=== PATIENT | male | born 1970 | race Caucasian/White ===

== ENCOUNTER 2021-08-23 08:31 | Outpatient (CLI) | payer BC, SELFPAY ==
[2021-08-23 08:54] LABS: Basophils Percent Auto 0.7 % (0.2-1.2); Eosinophils Absolute Auto 0.1 K/mm3 (0-0.3); Eosinophils Percent Auto 2.1 % (0-4.4); Hematocrit 41.5 % (42.0-52.0); Hemoglobin 14.4 g/dL (14.0-18.0); Immature Granulocyte Absolute 0.03 K/mm3 (0.00-0.031); Immature Granulocyte Percent A 0.5 % (0-0.5); Lymphocytes Absolute Auto 1.45 K/mm3 (0.9-3.2); Lymphocytes Percent Auto 23.6 % (18.3-44.2); Mean Corpuscular HGB Conc 34.7 g/dl (32-36); Mean Corpuscular Hemoglobin 30.1 pg (26-34); Mean Corpuscular Volume 86.6 fl (80-100); Mean Platelet Volume 9.8 fl (7.4-10.4); Monocytes Absolute Auto 0.6 K/mm3 (0.1-0.6); Monocytes Percent Auto 9.1 % (2.6-8.5); Neutrophils Absolute Auto 3.9 K/mm3 (1.3-6.7); Platelet Count Result 231 k/mm3 (150-375); Red Blood Count 4.79 M/mm3 (4.6-6.20); White Blood Count 6.2 K/mm3 (4.5-10.0)
[2021-08-23 09:12] LABS: Alanine Aminotransferase 23 U/L (4-50); Albumin Level 4.6 g/dL (3.5-5.1); Alkaline Phosphatase 61 U/L (38-126); Anion Gap 10 mmol/L (8-16); Aspartate Amino Transferase 29 U/L (17-59); Bilirubin,Total 0.9 mg/dL (0.2-1.3); Blood Urea Nitrogen 12 mg/dL (9-20); Calcium 9.3 mg/dL (8.4-10.2); Carbon Dioxide 24 mmol/L (22-30); Chloride 105 mmol/L (98-107); Cholesterol 227 mg/dL (0-200); Estimated Glomerular Filt Rate > 60; Glucose 96 mg/dL (65-110); HDL Direct 32 mg/dL; Potassium 4.1 mmol/L (3.4-5.0); Sodium 139 mmol/L (137-145); Triglycerides 187 mg/dL (<150)
[2021-08-23 09:15] LABS: Add Urine Microscopic? YES; Appearance Urine Clear (Clear); Bilirubin Urine Negative (Negative); Blood Urine Negative (Negative); Color Urine Yellow (Yellow); Glucose Urine UA Negative (Negative); Ketones Urine Negative (Negative); Leukocyte Esterase Ur Negative LEU/UL (NEGATIVE); Mucus Urine Heavy /lpf; Nitrate Urine Negative (Negative); Protein Urine 1+ mg/dL (Negative); RBC Urine 0-2 /hpf (0-2); Specific Grav Ur 1.023 (1.001-1.035); Squamous Epithelial Cell Urine Rare /hpf (Few); Urobilinogen Urine Negative mg/dL (<2.0); WBC Urine 0-3 /hpf (0-3)
[2021-08-23 09:22] LABS: LDL Cholesterol Direct 156 mg/dL
[2021-08-23 09:42] LABS: Prostate Specific Antigen 0.7 ng/mL (< OR = 4.0)
[2021-08-23 10:42] LABS: Folic Acid > 20.0 ng/mL (2.76->20)
== END 2021-08-23 08:32 | disposition home or self-care (01) ==
PROVIDERS: PCP Nurse Practitioner Family; Visit Provider Nurse Practitioner Family
DX: Z00.00 Encounter for general adult medical examination without abnormal findings (principal); Z12.5 Encounter for screening for malignant neoplasm of prostate
CPT/HCPCS: 36415; 80053; 80061; 81001; 82607; 82746; 84153; 84443; 85025; G0103

== ENCOUNTER 2022-10-28 00:03 | Observation (INO) | payer BC, SELFPAY ==
--- NOTE | ~2022-10-28 | XR_ITS ---
EXAMINATION: XR cholangiogram surg 1st inj DATE: 10/29/2022 17:30 PROCESS OWNER INDICATION: CHOLANGIOGRAM WITH IOC'S . TECHNIQUE: One cine clip consisting of 87 fluoroscopic images of the right upper quadrant were obtain ed during intraoperative cholangiography performed by the surgeon. I was not present in the operating room. Fluoroscopy exposure time was 14.7 seconds. Air Kerma 7.5631 mGy. DAP 0.1499 mGym2. COMPARISON: CT abdomen/pelvis and ultrasound abdomen 10/28/2022 FINDINGS: Laparoscopic instruments and surgical clips project over the right upper quadrant. The cystic duct is cannulated. Contrast fills a normal appearing intra and extrahepatic biliary system. No filling defe cts. No extravasation. IMPRESSION: Fluoroscopic documentation of intraoperative cholangiography. Please refer to the operative note for complete procedural details . Reviewed, dictated and finalized at location K. ESS OWNER IMPRESSION: Fluoroscopic documentation of intraoperative cholangiography. Please refer to nader clifton operative note for complete procedural details .
--- NOTE | ~2022-10-28 | CT_ITS ---
EXAMINATION: CT abdomen pelvis w con DATE: 10/28/2022 01:55 INDICATION: Right upper quadrant pain. Gallstones. TECHNIQUE: Computed tomography (CT) of the abdomen and pelvis was performed without intravenous contr ast. The dose-length product was 428.51 mGy-cm. Automated exposure control and iterative reconstructi on technique were employed. COMPARISON: None. FINDINGS: There is dependent atelectasis. Heart size normal. No significant vascular abnormality. No aortic aneurysm. No lymphadenopathy. There are gallstones. No biliary dilatation. The liver, spleen, pancreas, adrenal glands and kidneys are unremarkable. No free air or free fluid. No abnormal pelvic masses or fluid collections. Tiny fat -containing umbilical hernia. No evidence for inguinal hernia. No focal lytic or blastic lesions the osseous structures. Mild lumbar spondylosis. IMPRESSION: 1. Cholelithiasis. Reviewed, dictated and finalized at location A. Y FARMER IMPRESSION: 1. Cholelithiasis.
--- NOTE | ~2022-10-28 | US_ITS ---
US abdomen limited INDICATION: Right upper quadrant pain. Gallstones. PROCEDURE: Realtime right upper abdominal ultrasound. COMPARISON: No prior studies for comparison. FINDINGS: The pancreas is normal without focal mass or pancreatic ductal dilation. There is mild int rahepatic biliary dilatation. No focal hepatic mass. There is normal directional flow in the portal vein. There are gallstones with gallbladder wall thickening. Common bile duct measures mm. No sonographic Amado's sign although patient is on pain medications. IMPRESSION: 1: Cholelithiasis with gallbladder wall thickening and mild intrahepatic biliary dilatation. Findings suspicious for cholecystitis. Clinically correlate. Reviewed, dictated and finalized at location A. ING ENGINEER IMPRESSION: 1: Cholelithiasis with gallbladder wall thickening and mild intrahepatic biliar y dilatation. Findings suspicious for cholecystitis. Clinically correlate.
--- NOTE | 2022-10-28 00:05 | ECG_ITS ---
Measurements Intervals [place] Rate: 67 P: 63 [place]: 142 QRS: 50 QRSD: 113 T: 40 QT: 396 QTc: 419 Interpretive Statements SINUS RHYTHM INCOMPLETE RIGHT BUNDLE BRANCH BLOCK NO PREVIOUS ECG AVAILABLE FOR COMPARISON Electronically Signed On 10-28-2022 11:21:28 ARTIFICIAL INTELLIGENCE SPECIALIST by Ted Monteiro M.D.
[2022-10-28 00:09] VITALS: BP 148/83; PULSE 76; RESP 20; TEMP 36.2; O2SAT 100
[2022-10-28 00:26] LABS: Basophils Percent Auto 0.4 % (0.2-1.2); Eosinophils Absolute Auto 0.1 K/mm3 (0-0.3); Eosinophils Percent Auto 0.7 % (0-4.4); Hematocrit 41.5 % (42.0-52.0); Hemoglobin 14.4 g/dL (14.0-18.0); Immature Granulocyte Absolute 0.03 K/mm3 (0.00-0.031); Immature Granulocyte Percent A 0.3 % (0-0.5); Lymphocytes Absolute Auto 1.61 K/mm3 (0.9-3.2); Lymphocytes Percent Auto 16.7 % (18.3-44.2); Mean Corpuscular HGB Conc 34.7 g/dl (32-36); Mean Corpuscular Hemoglobin 30.3 pg (26-34); Mean Corpuscular Volume 87.2 fl (80-100); Mean Platelet Volume 9.7 fl (7.4-10.4); Monocytes Absolute Auto 0.6 K/mm3 (0.1-0.6); Monocytes Percent Auto 5.8 % (2.6-8.5); Neutrophils Absolute Auto 7.4 K/mm3 (1.3-6.7); Neutrophils Percent Auto 76.1 % (45.5-73.1); Platelet Count Result 237 k/mm3 (150-375); Red Blood Count 4.76 M/mm3 (4.6-6.20); White Blood Count 9.7 K/mm3 (4.5-10.0)
[2022-10-28 00:35] LABS: Mucus Urine Rare /lpf; RBC Urine 0-2 /hpf (0-2); WBC Urine 0-3 /hpf
[2022-10-28 00:39] LABS: Appearance Urine Clear (Clear); Bilirubin Urine Negative (Negative); Blood Urine Negative (Negative); Color Urine Yellow (Yellow); Glucose Urine UA Negative (Negative); Ketones Urine Negative (Negative); Leukocyte Esterase Ur Negative LEU/UL (Negative); Nitrate Urine Negative (Negative); Protein Urine Negative (Negative); Specific Grav Ur 1.025 (1.001-1.035); Urobilinogen Urine 0.2 mg/dL (<2.0); pH Urine 6.5 (5.0-9.0)
[2022-10-28 00:43] LABS: Alanine Aminotransferase 27 U/L (6-50); Albumin Level 4.7 g/dL (3.5-5.1); Alkaline Phosphatase 67 U/L (38-126); Anion Gap 10 mmol/L (8-16); Aspartate Amino Transferase 29 U/L (17-59); Bilirubin,Total 0.4 mg/dL (0.2-1.3); Blood Urea Nitrogen 15 mg/dL (9-20); Carbon Dioxide 25 mmol/L (22-30); Chloride 104 mmol/L (98-107); Estimated CRCL calculation 100 ml/min; Estimated Glomerular Filt Rate > 60; Glucose 122 mg/dL (65-110); Lipase 165 U/L (23-300); Potassium 3.6 mmol/L (3.4-5.0); Sodium 139 mmol/L (137-145)
[2022-10-28 00:44] LABS: Add Urine Microscopic? NO
[2022-10-28] MEDS: PANTOPRAZOLE SODIUM IV 40 MG VIAL IV PUSH (01:24)
[2022-10-28] MEDS: MORPHINE SULFATE (*CRX) 4 MG/ML INJ IV PUSH ×3 (01:24→08:50)
[2022-10-28] MEDS: ONDANSETRON INJ 4 MG/2 ML VIAL IV PUSH (01:24)
[2022-10-28] MEDS: SODIUM CHLORIDE 0.9% IV 1,000 ML 999 ML IV CONT (01:25)
--- NOTE | 2022-10-28 01:58 | ED.GENADULT ---
HPI - General Adult General Chief complaint: Abdominal Pain Stated complaint: Epigastric pain, n/v Time Seen by Provider: 10/28/22 01:03 History of Present Illness HPI narrative: Patient is a 52-year-old gentleman who presents the emergency department with a chief complaint of epigastric pain. Patient reports that this evening he ate some pizza and then had about a half a beer and then reports that he started having severe epigastric pain that radiates to his back patient also reports that he had pain radiating to his right shoulder and his chest. Patient reports that the symptoms or not improved by anything reports he feels nauseated reports he has vomited a couple times and try to have a bowel movement. Patient denies fever denies prior abdominal surgeries. Related Data Home Medications Medication Instructions Recorded Confirmed carboxymethyl 0.5 %-glycerin 1 1 drp EACH EYE QHS 08/10/21 08/10/21 %-polysorb 80 0.5 %-PF eye dropperette (Refresh Optive Lupillo-3 (PF)) carboxymethylcellulose sodium 0.5 1 drp EACH EYE BID 08/10/21 08/10/21 % eye drops (Refresh Tears) cetirizine 10 mg capsule (Zyrtec) 10 mg PO DAILY PRN 08/10/21 08/10/21 fluticasone propionate 50 1 spray intranasal DAILY 08/10/21 08/10/21 mcg/actuation nasal spray,suspension (Flonase Allergy Relief) ibuprofen 200 mg tablet 200 mg PO Q6H PRN 08/10/21 08/10/21 pseudoephedrine-guaifenesin ER 60 1 tablet PO Q12H PRN 08/10/21 08/10/21 mg-600 mg tablet,extend release 12hr (Mucinex D) Allergies Allergy/AdvReac Type Severity Reaction Status Date / Time No Known Allergies Allergy Verified 10/28/22 00:13 Review of Systems Review of Systems: A 10 system review of systems was completed on the patient and is negative except for what is stated in the HPI. Nursing and ancillary documentation was reviewed. [facility] Past Medical History Medical History Chronic allergic rhinitis Encounter to establish care Frequent episodes of pneumonia Hearing loss Hx of cardiac murmur Screening for colon cancer Screening for prostate cancer Seasonal allergies Family History Family History Father Malignant neoplasm of prostate Mother Breast cancer Cerebrovascular accident Thyroid disease High cholesterol Sibling Thyroid disease High cholesterol Social History Social History Smoking status: Never smoker Alcohol intake: never Substance use: never Exam Narrative: GENERAL: Well-appearing, well-nourished, and in no acute distress. HEAD: Normocephalic, atraumatic. EYES: PERRLA and EOMI. ENT: Nares clear, no rhinorrhea or epistaxis. Mucous membranes moist. NECK: Supple. CHEST: Clear to auscultation. No respiratory distress. HEART: Regular rate and rhythm. No murmur heard. Normal peripheral pulses. ABDOMEN: Soft, tender to palpation in the epigastric and right upper quadrant, nondistended, normal active bowel sounds. EXTREMITIES: Normal range of motion. No edema. SKIN: Warm, dry, no rash. NEURO: No focal deficits. Alert and oriented x3. PSYCH: Normal mood and affect. Course Course Emergency Course: CT scan showed evidence of a large number of gallstones but no thickening of the gallbladder wall or fluid around the gallbladder. The patient's pain is improved somewhat but he still having some pain. Patient will be admitted for observation bowel rest and ultrasound in the morning Vital Signs Vital signs: Vital Signs Temperature 36.2 C L 10/28/22 00:09 Pulse Rate 76 10/28/22 00:09 Respiratory Rate 20 10/28/22 00:09 Blood Pressure 148/83 H 10/28/22 00:09 Pulse Oximetry 100 10/28/22 00:09 Oxygen Delivery Room Air 10/28/22 00:09 Temperature 36.2 C L 10/28/22 00:09 Pulse Rate 66 10/28/22 03:56 Respiratory Rate 18 10/28
[2022-10-28 03:56] VITALS: BP 123/91; PULSE 66; RESP 18; O2SAT 97
[2022-10-28] MEDS: SODIUM CHLORIDE 0.9% IV 1,000 ML 125 ML IV CONT ×3 (04:54→21:05)
[2022-10-28 05:26] LABS: Influenza A QL RT-PCR Negative (Negative); Influenza B QL RT-PCR Negative (Negative); SARS-CoV-2 RNA PCR Negative
[2022-10-28 05:38] VITALS: BP 124/62; PULSE 60; RESP 18; O2SAT 96
[2022-10-28 06:03] VITALS: BMI 27.6
[2022-10-28 06:05] VITALS: BP 118/63; PULSE 68; RESP 18; TEMP 36.2; O2SAT 98
--- NOTE | 2022-10-28 11:48 | PM.IMHP ---
H&P: HPI History of Present Illness Date/Time: 10/28/22 11:48 Chief Complaint: abdominal pain Narrative: Patient is a 52-year-old gentleman who presents the emergency department with a chief complaint of epigastric pain and right upper quadrant pain.? Patient reports that this evening he ate some pizza and then had about a half a beer and then reports that he started having severeRight lower part of the chest pain that radiated back to epigastric after an hour or so. The pain has been constant. He took some antacid which made him nauseated and he to self throughout. His the pain continued he came to the ER around midnight and he was given morphine after which he started to feel little better. He had another episode again later for which he was given another morphine. His been feeling well since then and except for the mild discomfort in that area reports no obvious pain. He denies any nausea vomiting he felt a little chilly yesterday but no fever. He has no other prior medical history. He did have similar episode couple years back which resolved without any medical attention. Review of Systems Review of Systems: - CONSTITUTIONAL: Denies weight loss, fever and chills. - HEENT: Denies changes in vision and hearing - RESPIRATORY: Denies SOB and cough. - CV: Denies palpitations and CP. - GI: Reports abdominal pain, nausea, vomiting and denies diarrhea. - : Denies dysuria and urinary frequency. - MSK: Denies myalgia and joint pain. - SKIN: Denies rash and pruritus. - NEUROLOGICAL: Denies headache and syncope. - PSYCHIATRIC: Denies recent changes in mood. Denies anxiety and depression. [facility] Past Medical History Medical History Chronic allergic rhinitis Encounter to establish care Frequent episodes of pneumonia Hearing loss Hx of cardiac murmur Screening for colon cancer Screening for prostate cancer Seasonal allergies Family History Family History Father Malignant neoplasm of prostate Mother Breast cancer Cerebrovascular accident Thyroid disease High cholesterol Sibling Thyroid disease High cholesterol Social History Social History Smoking status: Never smoker Alcohol intake: current Drinks per week: 1 Substance use: never Substance use type: does not use Lack of Transportation: No Lack of Food: Never True Current Housing: I Have Housing Concerned About Future Housing: No Difficulty Paying Gas/Electric Bills: No Difficulty Paying for Meds: No Currently Unemployed: No Education: Bachelor's Degree Difficulty w/ Childcare or Family Care: No Spiritual care concerns: No Meds Home Medications and Allergies Home Medications Medication Instructions Recorded Confirmed Type carboxymethyl 0.5 %-glycerin 1 1 drp EACH EYE QHS 08/10/21 10/28/22 History %-polysorb 80 0.5 %-PF eye dropperette (Refresh Optive Lupillo-3 (PF)) carboxymethylcellulose sodium 0.5 1 drp EACH EYE BID PRN Dry Eyes 08/10/21 10/28/22 History % eye drops (Refresh Tears) cetirizine 10 mg capsule (Zyrtec) 10 mg PO DAILY PRN Allergy Symptoms 08/10/21 10/28/22 History fluticasone propionate 50 1 spray intranasal DAILY 08/10/21 10/28/22 History mcg/actuation nasal spray,suspension (Flonase Allergy Relief) ibuprofen 200 mg tablet 200 mg PO Q6H PRN Pain 08/10/21 10/28/22 History pseudoephedrine-guaifenesin ER 60 1 tablet PO Q12H PRN Nasal 08/10/21 10/28/22 History mg-600 mg tablet,extend release Congestion 12hr (Mucinex D) Allergies Allergy/AdvReac Type Severity Reaction Status Date / Time No Known Allergies Allergy Verified 10/28/22 00:13 Vital Signs Vital Signs - 24 hr 10/28/22 00:09 10/28/22 03:56 10/28/22 05:38 Temperature 97.2 F L Pulse Rate 76 66 60 Respira
[2022-10-28 14:10] VITALS: BP 107/56; PULSE 69; RESP 12; TEMP 36.3; O2SAT 98
--- NOTE | 2022-10-28 16:52 | PM.CNGS ---
Assessment and Plan Assessment and plan (1) Acute calculous cholecystitis: Code(s): K80.00 - Calculus of gallbladder with acute cholecystitis without obstruction Status: Acute Assessment and Plan: I have reviewed the CT and discussed the findings with the patient. He has evidence of cholelithiasis and gallbladder wall thickening consistent with acute cholecystitis. His liver enzymes are normal, but ultrasound did show slightly dilated intrahepatic bile ducts. Since patient's symptoms are currently improved, I will place him on a low-fat diet this evening to see how he does. We will plan to repeat CBC, CMP, and lipase tomorrow. Patient does have many gallstones throughout his gallbladder and is at risk for recurrent acute episodes in the future. I have discussed options of observation versus proceeding with surgery. Observation will certainly have risks of recurrent attacks and there is no easy way to predict when that will be. Dietary modifications can help prevent attacks, but it is no guarantee. Have recommended proceeding with laparoscopic cholecystectomy with intraoperative cholangiogram, possible open. I discussed the procedure, risks, benefits, and alternatives. Questions were answered. Will plan for surgery tomorrow unless there are any other new concerning findings with his labs or symptoms. (2) Dilation of biliary tract: Code(s): K83.8 - Other specified diseases of biliary tract Status: Acute History of Present Illness Consult details Consult date: 10/28/22 Reason for consult: gallstones Requesting physician: Anthony Barron MD Narrative: This is a 52-year-old man who I am asked to see for cholelithiasis with cholecystitis. He presented to the emergency department early this morning with abdominal pain that started last night. He had eaten pizza and drinking half of beer, and pain began shortly after this. His pain initially began in the right chest and right upper quadrant region and then eventually migrated to the epigastric region. He has been having constant pain since it started, but then his pain started improving around noon today. He was also experiencing nausea. He denied any fevers or chills. He did have an episode similar to this a couple years ago but it resolved after couple hours. He never sought treatment with the previous episode. A CT of his abdomen and pelvis was performed in the emergency department and this showed evidence of cholelithiasis. He was admitted for further workup and an ultrasound was performed this morning. This showed evidence of cholelithiasis, mild gallbladder wall thickening, and mild intrahepatic biliary duct dilatation. Review of Systems Review of Systems: All systems reviewed & are unremarkable except as noted in HPI and below Constitutional: Constitutional: Denies chills and Denies fever(s) Eyes: Eyes: Denies change in vision ENT: Denies hearing loss, Denies neck pain and Denies sore throat Cardiovascular: Cardiovascular: Denies chest pain and Denies dyspnea Respiratory: Respiratory: Denies cough, Denies dyspnea and Denies wheezing Genitourinary: Genitourinary: Denies hematuria and Denies dysuria Musculoskeletal: Musculoskeletal: Denies arthralgias, Denies joint swelling and Denies neck pain Allergic/Immunologic: Allergic/Immunologic: Denies wheezing [facility] Past Medical History Medical History (Updated 10/28/22 @ 16:58 by Kamlesh Davis DO) Chronic allergic rhinitis Encounter to establish care Frequent episodes of pneumonia Hearing loss Hx of cardiac murmur Screening for colon cancer Screening for prostate cancer Seasonal allergies Surgical History Surgical History (Updated 10/28/22 @ 16:56 by Kamlesh Davis DO) No history of previous surgery Family History Family History Father Malignant neoplasm of prostate Mother Breast cancer Cerebrovascular acc
[2022-10-28] MEDS: ACETAMINOPHEN/ASPIRIN/CAFFEINE 250-250-65 MG TABLET 1 TABLET PO (17:15)
[2022-10-28 22:00] VITALS: BP 113/60; PULSE 62; RESP 16; TEMP 36.3; O2SAT 97
--- NOTE | 2022-10-28 22:42 | PC.NURSE ---
Pt is resting in bed. Pt states that he is not currently experiencing any pain. Pt does not express any needs at this time. Pt participated and contributed in plan of care. Will continue to monitor pt.
[2022-10-29] VITALS (13 sets, daily range): BP systolic 99–131; BP diastolic 48–85; PULSE 70–96; RESP 14–24; TEMP 36.2–37.7; O2SAT 93–100
[2022-10-29 06:53] LABS: Hematocrit 38.7 % (42.0-52.0); Hemoglobin 13.2 g/dL (14.0-18.0); Mean Corpuscular HGB Conc 34.1 g/dl (32-36); Mean Corpuscular Hemoglobin 30.8 pg (26-34); Mean Corpuscular Volume 90.2 fl (80-100); Mean Platelet Volume 9.9 fl (7.4-10.4); Platelet Count Result 192 k/mm3 (150-375); Red Blood Count 4.29 M/mm3 (4.6-6.20); Red Cell Distribution Width 12.4 % (11.5-14.5); White Blood Count 9.9 K/mm3 (4.5-10.0)
[2022-10-29 07:05] LABS: Alanine Aminotransferase 24 U/L (6-50); Albumin Level 3.8 g/dL (3.5-5.1); Alkaline Phosphatase 52 U/L (38-126); Anion Gap 7 mmol/L (8-16); Aspartate Amino Transferase 32 U/L (17-59); Bilirubin,Total 1.4 mg/dL (0.2-1.3); Blood Urea Nitrogen 9 mg/dL (9-20); Calcium 7.9 mg/dL (8.4-10.2); Carbon Dioxide 27 mmol/L (22-30); Chloride 103 mmol/L (98-107); Estimated CRCL calculation 100 ml/min; Estimated Glomerular Filt Rate > 60; Glucose 97 mg/dL (65-110); Lipase 57 U/L (23-300); Potassium 3.9 mmol/L (3.4-5.0); Sodium 137 mmol/L (137-145)
--- NOTE | 2022-10-29 12:00 | PM.IMPN ---
Progress Note: A&P Assessment and Plan (1) Acute cholecystitis: Code(s): K81.0 - Acute cholecystitis Status: Deleted (2) Dilation of biliary tract: Code(s): K83.8 - Other specified diseases of biliary tract Status: Acute Plan # acute calculus cholecysittis: iv zosyn. npo gens ugery consult. ivf. iv morphine, iv zofran prn. mild biliary dilation noted. lfts are normal. discussed with General surgery. He is going for laparoscopic cholecystectomy with plans for intraoperative cholangiogram. If evidence of stones and bile duct GI consult for ERCP. Labs were unremarkable so unlikely # DVT proph: SCDs # code status: full code Subjective Date/time seen: 10/29/22 12:00 Interval history: no further pain reported no nausea vomiting. Plan for surgery today all questions answered Review of Systems Review of Systems: All systems reviewed & are unremarkable except as noted in HPI and below Exam Narrative: GENERAL: Well-appearing, well-nourished, and in no acute distress. HEAD: Normocephalic, atraumatic. EYES: PERRLA and EOMI. ENT: Nares clear, no rhinorrhea or epistaxis.? Mucous membranes moist. NECK: Supple. CHEST: Clear to auscultation.? No respiratory distress. HEART: Regular rate and rhythm.? No murmur heard.? Normal peripheral pulses. ABDOMEN: Soft, nontender, nondistended, normal active bowel sounds. EXTREMITIES: Normal range of motion.? No edema. SKIN: Warm, dry, no rash. NEURO: No focal deficits.? Alert and oriented x3. PSYCH: Normal mood and affect. Objective Data Vital Signs Vital Signs: Vital Signs - 24 hr 10/28/22 14:10 10/28/22 21:05 10/28/22 22:00 Temperature 97.3 F L 97.4 F L Pulse Rate 69 62 Respiratory Rate 12 16 Blood Pressure 107/56 L 113/60 Pulse Oximetry 98 97 Oxygen Delivery Room Air 10/29/22 06:00 Temperature 98.7 F Pulse Rate 81 Respiratory Rate 16 Blood Pressure 124/56 L Pulse Oximetry 97 Oxygen Delivery Intake/Output Intake/Output: Intake & Output 10/26/22 10/27/22 10/28/22 10/29/22 23:59 23:59 23:59 23:59 Intake Total 3522 400 Balance 3522 400 Meds/Results Medications: Active Medications Generic Name Dose Route Start Last Admin Trade Name Freq PRN Reason Stop Dose Admin Acetaminophen/Aspirin/Caffeine 1 tablet 10/28/22 13:07 10/28/22 17:15 Acetaminophen/Aspirin/Caffeine 250-250-65 Mg Tablet PO 1 tablet Q6H PRN Administration Pain Rated 1-3 Sodium Chloride 1,000 mls @ 50 mls/hr 10/28/22 04:35 10/28/22 21:05 Normal Saline Iv IV CONT 125 mls/hr .Q20H KORINA Administration Piperacillin/Tazobactam/Dextrose 3.375 gm in 50 mls @ 100 mls/hr 10/28/22 13:00 10/29/22 08:12 Zosyn 3.375 Gm/D5w 50ml Pm IVPB Infused Q6H KORINA Infusion Morphine Sulfate 4 mg 10/28/22 04:35 10/28/22 08:50 Morphine Sulfate (*Crx) 4 Mg/Ml Inj IV PUSH 4 mg Q2H PRN Administration Pain Rated 7-10 Ondansetron HCl 4 mg 10/28/22 04:35 Ondansetron Inj 4 Mg/2 Ml Vial IV PUSH Q4H PRN Nausea Radiology Results: ITS Impressions Abdomen/Pelvis CT 10/28/22 09:24 IMPRESSION: 1. Cholelithiasis. Abdomen Ultrasound 10/28/22 09:28 IMPRESSION: 1: Cholelithiasis with gallbladder wall thickening and mild intrahepatic biliary dilatation. Findings suspicious for cholecystitis. Clinically correlate. Labs Labs: Laboratory Results - last 24 hr 10/29/22 10/29/22 06:25 06:25 WBC 9.9 RBC 4.29 L Hgb 13.2 L Hct 38.7 L MCV 90.2 MCH 30.8 MCHC 34.1 RDW 12.4 Plt Count 192 MPV 9.9 Sodium 137 Potassium 3.9 Chloride 103 Carbon Dioxide 27 Anion Gap 7 L BUN 9 D Creatinine 0.80 Estim Creat Clear Calc 100 Estimated GFR > 60 Glucose 97 Calcium 7.9 L Total Bilirubin 1.4 H AST 32 ALT 24 Alkaline Phosphatase 52 Total Protein 6.0 L Albumin 3.8 Lipase 57
[2022-10-29] MEDS: LACTATED RINGERS 1,000 ML 30 ML IV CONT ×2 (15:43→18:25)
--- NOTE | 2022-10-29 17:06 | WPDHPUPDATE1 ---
History and Physical Update Update Date/Time: 10/29/22 17:06 History and Physical has been reviewed, including an updated exam of the patient. There are NO changes in the patient's condition. Risks, benefits, and alternatives have been discussed and questions answered. Patient agrees to proceed with procedure.
--- NOTE | 2022-10-29 17:10 | WPDANESEPPF ---
Anes - Initial Pre Proc Eval Procedure: Operation Date: 10/29/22 15:30 Proposed Procedures p Laparoscopic Cholecystectomy With Intraoperative Cholangiograms - Kamlesh Davis DO Date/Time: 10/29/22 17:10 Surgeon: Anthony Barron MD Pre Op Diagnosis: epigatric abdominal pain Patient Data Age: 52 Gender: M Height: 1.8 m Weight: 89.9 kg Last Vital Signs Temp 37.7 C H 10/29/22 15:39 Pulse 80 10/29/22 15:39 Resp 14 10/29/22 15:39 BP 121/74 10/29/22 15:39 Pulse Ox 96 10/29/22 15:39 O2 Del Method Room Air 10/29/22 15:39 Allergies Allergy/AdvReac Type Severity Reaction Status Date / Time No Known Allergies Allergy Verified 10/28/22 00:13 Home Medications Medication Instructions Recorded Confirmed Type carboxymethyl 0.5 %-glycerin 1 1 drp EACH EYE QHS 08/10/21 10/28/22 History %-polysorb 80 0.5 %-PF eye dropperette (Refresh Optive Lupillo-3 (PF)) carboxymethylcellulose sodium 0.5 1 drp EACH EYE BID PRN Dry Eyes 08/10/21 10/28/22 History % eye drops (Refresh Tears) cetirizine 10 mg capsule (Zyrtec) 10 mg PO DAILY PRN Allergy Symptoms 08/10/21 10/28/22 History fluticasone propionate 50 1 spray intranasal DAILY 08/10/21 10/28/22 History mcg/actuation nasal spray,suspension (Flonase Allergy Relief) ibuprofen 200 mg tablet 200 mg PO Q6H PRN Pain 08/10/21 10/28/22 History pseudoephedrine-guaifenesin ER 60 1 tablet PO Q12H PRN Nasal 08/10/21 10/28/22 History mg-600 mg tablet,extend release Congestion 12hr (Mucinex D) Laboratory Tests 10/29/22 10/29/22 06:25 06:25 WBC 9.9 K/mm3 K/mm3 (4.5-10.0) RBC 4.29 M/mm3 L M/mm3 (4.6-6.20) Hgb 13.2 g/dL L g/dL (14.0-18.0) Hct 38.7 % L % (42.0-52.0) MCV 90.2 fl fl (80-100) MCH 30.8 pg pg (26-34) MCHC 34.1 g/dl g/dl (32-36) RDW 12.4 % % (11.5-14.5) Plt Count 192 k/mm3 k/mm3 (150-375) MPV 9.9 fl fl (7.4-10.4) Sodium 137 mmol/L mmol/L (137-145) Potassium 3.9 mmol/L mmol/L (3.4-5.0) Chloride 103 mmol/L mmol/L (98-107) Carbon Dioxide 27 mmol/L mmol/L (22-30) Anion Gap 7 mmol/L L mmol/L (8-16) BUN 9 mg/dL D mg/dL (9-20) Creatinine 0.80 mg/dL mg/dL (0.7-1.3) Estim Creat Clear Calc 100 ml/min ml/min Estimated GFR > 60 (59 - ) Glucose 97 mg/dL mg/dL (65-110) Calcium 7.9 mg/dL L mg/dL (8.4-10.2) Total Bilirubin 1.4 mg/dL H mg/dL (0.2-1.3) AST 32 U/L U/L (17-59) ALT 24 U/L U/L (6-50) Alkaline Phosphatase 52 U/L U/L (38-126) Total Protein 6.0 g/dL L g/dL (6.3-8.2) Albumin 3.8 g/dL g/dL (3.5-5.1) Lipase 57 U/L U/L (23-300) Patient hx anesthesia problems: none Family hx anesthesia problems: none Results Review: All pre-operative results and documents have been reviewed as part of the pre-operative evaluation. [facility] Past Medical History Medical History Chronic allergic rhinitis Encounter to establish care Frequent episodes of pneumonia Hearing loss Hx of cardiac murmur Screening for colon cancer Screening for prostate cancer Seasonal allergies Surgical History Surgical History No history of previous surgery Family History Family History Father Malignant neoplasm of prostate Mother Breast cancer Cerebrovascular accident Thyroid disease High cholesterol Sibling Thyroid disease High cholesterol Social History Social History Smoking status: Never smoker Alcohol intake: current Drinks per week: 1 Substance use: never Substance use type: does not use Lack of Transportation: No Lack of Food: Never True Current Housing: I
[2022-10-29] MEDS: LIDO 1%/EPINEPHRINE/PF 1:200,000 30 ML VIAL INFILTRATE (17:41)
--- NOTE | 2022-10-29 18:23 | W.PM.PROC2 ---
Procedure Note - Detailed Date of Procedure 10/29/22 Pre-op Diagnosis Acute calculous cholecystitis, elevated bilirubin Post-op Diagnosis Same Procedure Performed Laparoscopic Cholecystectomy with intraoperative cholangiogram Surgeon Kamlesh Davis, Anesthesia General and Local (0.5% bupivacaine) Indications This is a 52-year-old man who presented to the emergency department with upper abdominal pain. He denied any fevers or chills. He did have some nausea. He had an episode like this a couple years ago but not as severe. In the emergency department he was noted to have a normal white blood count with a left shift. His liver enzymes were normal initially but imaging showed a slightly dilated intrahepatic biliary ducts. His CT also showed acute calculous cholecystitis. He was admitted for further treatment. Discussions were made with the patient about treatment options and decision was made to proceed with laparoscopic cholecystectomy with intraoperative cholangiogram, possible open. Findings Laparoscopic cholecystectomy with cholangiogram was performed. The gallbladder had evidence of acute cholecystitis with gallbladder wall thickening and edema. There were a few pericholecystic adhesions as well. The gallbladder had multiple gallstones within the gallbladder lumen. The cystic duct appeared normal in size. Cholangiogram was obtained with Omnipaque contrast and there were no filling defects or be biliary duct obstructions. The gallbladder was removed and sent to the lab for pathology. Description of Procedure Procedure as well as risks, benefits, and alternatives were discussed with patient. Written consent was obtained and placed in chart prior to procedure. The patient was brought back to surgical suite. Patient was placed in supine position on operating table. Time-out was done to confirm patient and procedure. Patient was then intubated by the anesthesia department. Abdomen was prepped and draped in sterile fashion using chlorhexidine prep. 0.5% bupivacaine with epinephrine was infiltrated at each site of incision. A 5 millimeter incision was made near the umbilicus, and a 5 millimeter Optiview trocar was advanced through the abdominal layers under direct visualization. Once inside the abdominal cavity, carbon dioxide was insufflated to create a pneumoperitoneum. The camera was inserted and the abdomen was inspected. No immediate abnormalities were identified. The patient was placed in reverse Trendelenburg position and rotated slightly to the left. An 11 millimeter incision was made in the subxiphoid region, and an 11 millimeter trocar was inserted under direct visualization. Two 5 millimeter incisions were made in the right upper quadrant, and two 5 millimeter trocars were inserted under direct visualization. The gallbladder was identified and grasped at the fundus and retracted superiorly. It was then grasped at the infundibulum retracted laterally. Careful dissection around the neck of the gallbladder was performed using blunt dissection with a [place] grasper and hook electrocautery. The cystic duct was identified, and a window was created behind it. The cystic artery was also identified and a window was created behind it. The critical view of safety was identified, visualizing the cystic duct running directly into the neck of the gallbladder, and the cystic artery running directly into the wall of the gallbladder. A 5 millimeter clip industrial maintenance repairer was then used to place 2 clips proximally and 1 clip distally on the cystic artery. It was then transected using endoscopic scissors. The Barnhart clamp was then placed across the distal neck of the gallbladder and the Barnhart cholangiocatheter was advanced into the distal neck of the gallbladder. The catheter flushed with saline with ease. The patient was flattened out of bed and intraoperative cholangiogram was obtained using fluoroscopy and Omnipaque contrast. The images were sent to th
[2022-10-30 01:28] VITALS: BP 104/60; PULSE 74; RESP 16; TEMP 36.6; O2SAT 94
[2022-10-30] MEDS: HYDROcodone/acetaminophen (*CRX) 5-325 MG TABLET 1 TAB PO (03:01)
--- NOTE | 2022-10-30 04:10 | PC.NURSE ---
Pt came back from surgery with no complaints of pain. Pt resting comfortably. Pt has only required pain medication one time. Pt has participated and contributed in plan of care. Pt has no other needs at this time. Will continue to monitor pt.
[2022-10-30 05:28] VITALS: BP 92/38; PULSE 78; RESP 16; TEMP 36.4; O2SAT 96
[2022-10-30 07:00] LABS: Hematocrit 35.4 % (42.0-52.0); Hemoglobin 12.1 g/dL (14.0-18.0); Mean Corpuscular HGB Conc 34.2 g/dl (32-36); Mean Corpuscular Hemoglobin 29.9 pg (26-34); Mean Corpuscular Volume 87.4 fl (80-100); Mean Platelet Volume 9.8 fl (7.4-10.4); Platelet Count Result 225 k/mm3 (150-375); Red Blood Count 4.05 M/mm3 (4.6-6.20); Red Cell Distribution Width 12.1 % (11.5-14.5); White Blood Count 10.2 K/mm3 (4.5-10.0)
[2022-10-30 07:08] LABS: Alanine Aminotransferase 29 U/L (6-50); Albumin Level 3.8 g/dL (3.5-5.1); Alkaline Phosphatase 54 U/L (38-126); Anion Gap 5 mmol/L (8-16); Aspartate Amino Transferase 30 U/L (17-59); Bilirubin,Total 1.1 mg/dL (0.2-1.3); Blood Urea Nitrogen 10 mg/dL (9-20); Calcium 8.2 mg/dL (8.4-10.2); Carbon Dioxide 28 mmol/L (22-30); Chloride 105 mmol/L (98-107); Estimated CRCL calculation 90 ml/min; Estimated Glomerular Filt Rate > 60; Glucose 104 mg/dL (65-110); Potassium 3.7 mmol/L (3.4-5.0); Sodium 138 mmol/L (137-145)
[2022-10-30 08:00] VITALS: BP 120/82; PULSE 83; RESP 16; TEMP 36.4; O2SAT 97
[2022-10-30] MEDS: ACETAMINOPHEN/ASPIRIN/CAFFEINE 250-250-65 MG TABLET 1 TABLET PO (08:49)
--- NOTE | 2022-10-30 11:00 | PM.DS ---
DS: Admitting Diagnosis Discharge Date 10/30/22 1100 Admitting Diagnosis Acute cholecystectomy DS: Discharge Diagnosis Discharge Diagnosis (1) Acute cholecystitis: Code(s): K81.0 - Acute cholecystitis Status: Deleted Assessment and Plan: Post op surgical intervention 10/29/22 (2) Dilation of biliary tract: Code(s): K83.8 - Other specified diseases of biliary tract Status: Acute Plan # acute calculus cholecysittis: iv zosyn. npo gens ugery consult. ivf. iv morphine, iv zofran prn. mild biliary dilation noted. lfts are normal. ?need GI evaluation prior vs perform MRI /MRCP to rule out choledocholithiasis. will await gen surg evaluation. # DVT proph: SCDs # code status: full code DS: Summary Hospital Course Hospital Course: Patient is a 52-year-old male with a past medical history of seasonal allergies who presented to the ED with complaints of right upper quadrant pain. Patient did report that he had some pizza prior to room and pain radiates to the epigastric region. CT of the abdomen showed cholelithiasis. Ultrasound of the right upper quadrant did show gallbladder thickening and biliary dilatation. Stone obstruction was ruled out. Patient was taken to OR by General surgery who was consulted. Patient underwent cholecystectomy. Patient is up walking around today. Patient denies any chest pain, shortness a breath, nausea, vomiting, diarrhea, constipation, weakness or fatigue. Incision sites are intact with glue and appear to be well. Patient is ready for discharge. Labs and vital signs are stable. Status at Discharge Functional status at discharge: independent ambulation Overall status at discharge: patient is progressing back to baseline Time Spent with Patient Time attestation: Total time spent providing and/or coordinating discharge services: 36 minutes Time spent: Greater than 30 minutes Specific discharge activities: Diagnostic testing, chart review, developing a treatment plan, education, care coordination documentation, physical exam, result review Exam Narrative: GENERAL: Well-appearing, well-nourished, and in no acute distress. HEAD: Normocephalic, atraumatic. EYES: PERRLA and EOMI. ENT: Nares clear, no rhinorrhea or epistaxis.? Mucous membranes moist. NECK: Supple. CHEST: Clear to auscultation.? No respiratory distress. HEART: Regular rate and rhythm.? No murmur heard.? Normal peripheral pulses. ABDOMEN: Soft, nontender, nondistended, normal active bowel sounds, 4 surgical incision, glue dry and intact without swelling drainage or redness EXTREMITIES: Normal range of motion.? No edema. SKIN: Warm, dry, no rash. NEURO: No focal deficits.? Alert and oriented x3. PSYCH: Normal mood and affect. DS: Data Data Completed and Pending Pending studies at discharge: Pending at discharge 10/29/22 17:53 Surgical [PTH] Routine Labs on day of discharge: Labs from last 24 hours 10/30/22 10/30/22 06:17 06:17 WBC 10.2 H RBC 4.05 L Hgb 12.1 L Hct 35.4 L MCV 87.4 MCH 29.9 MCHC 34.2 RDW 12.1 Plt Count 225 MPV 9.8 Sodium 138 Potassium 3.7 Chloride 105 Carbon Dioxide 28 Anion Gap 5 L BUN 10 Creatinine 0.90 Estim Creat Clear Calc 90 Estimated GFR > 60 Glucose 104 Calcium 8.2 L Total Bilirubin 1.1 AST 30 ALT 29 Alkaline Phosphatase 54 Total Protein 7.0 Albumin 3.8 Discharge Plan Discharge Attending physician on discharge: Missy Frausto Consulting providers: Kamlesh Davis ; Tony Osorio ; Dave Anders ; Linden Cho ; Sanjeev Pretty ; Sneha Prasad Discharging Clinician: Tony Osorio Patient Disposition: Home, Self-Care Activity: may shower, unlimited and as tolerated Diet: low fat Wound Care Instructions: other - see discharge instructions Discharge Instructions: General surgery discharge instructions Hospitalist instruction Take all m
--- NOTE | 2022-10-30 11:36 | PM.IMPN ---
Subjective Date/time seen: 10/30/22 11:36 Objective Data Vital Signs Vital Signs: Vital Signs - 24 hr 10/29/22 14:00 10/29/22 15:39 10/29/22 18:38 Temperature 97.9 F 99.8 F H 97.2 F L Pulse Rate 72 80 70 Respiratory Rate 22 H 14 22 H Blood Pressure 108/57 L 121/74 109/60 Pulse Oximetry 98 96 100 Oxygen Delivery Room Air Simple Face Mask Oxygen Flow Rate 8 10/29/22 18:55 10/29/22 19:10 10/29/22 19:25 Temperature Pulse Rate 83 85 96 Respiratory Rate 24 H 20 21 H Blood Pressure 122/85 123/77 121/79 Pulse Oximetry 98 94 95 Oxygen Delivery Simple Face Mask Room Air Room Air Oxygen Flow Rate 8 10/29/22 19:40 10/29/22 18:40 10/29/22 20:38 Temperature Pulse Rate 79 74 Respiratory Rate 16 16 Blood Pressure 123/85 128/80 Pulse Oximetry 96 98 Oxygen Delivery Room Air Simple Face Mask Room Air Oxygen Flow Rate 8 10/29/22 20:15 10/29/22 20:32 10/29/22 20:52 Temperature 98 F 98 F 98 F Pulse Rate 84 78 88 Respiratory Rate 16 16 16 Blood Pressure 131/75 110/65 113/67 Pulse Oximetry 93 93 93 Oxygen Delivery Oxygen Flow Rate 10/29/22 21:15 10/30/22 01:28 10/30/22 05:28 Temperature 98 F 97.9 F 97.6 F Pulse Rate 81 74 78 Respiratory Rate 16 16 16 Blood Pressure 99/48 L 104/60 92/38 L Pulse Oximetry 94 94 96 Oxygen Delivery Oxygen Flow Rate 10/30/22 08:00 Temperature 97.5 F L Pulse Rate 83 Respiratory Rate 16 Blood Pressure 120/82 Pulse Oximetry 97 Oxygen Delivery Oxygen Flow Rate Intake/Output Intake/Output: Intake & Output 10/27/22 10/28/22 10/29/22 10/30/22 23:59 23:59 23:59 23:59 Intake Total 3522 800 530 Output Total 800 Balance 3522 0 530 Meds/Results Medications: Active Medications Generic Name Dose Route Start Last Admin Trade Name Freq PRN Reason Stop Dose Admin Acetaminophen/Aspirin/Caffeine 1 tablet 10/28/22 13:07 10/30/22 08:49 Acetaminophen/Aspirin/Caffeine 250-250-65 Mg Tablet PO 1 tablet Q6H PRN Administration Pain Rated 1-3 Hydrocodone Bitart/Acetaminophen 1 tab 10/29/22 19:43 10/30/22 03:01 Hydrocodone/Acetaminophen (*Crx) 5-325 Mg Tablet PO 1 tab Q4H PRN Administration Pain Rated 4-6 Hydrocodone Bitart/Acetaminophen 1 tab 10/29/22 19:43 Hydrocodone/Acetaminophen (*Crx) 7.5-325 Mg Tablet PO Q4H PRN Pain Rated 7-10 Piperacillin/Tazobactam/Dextrose 3.375 gm in 50 mls @ 100 mls/hr 10/28/22 13:00 10/30/22 06:23 Zosyn 3.375 Gm/D5w 50ml Pm IVPB 100 mls/hr Q6H KORINA Administration Morphine Sulfate 2 mg 10/29/22 19:43 Morphine Sulfate (*Crx) 2 Mg/Ml Inj IV PUSH Q2H PRN Pain Rated 4-6 Morphine Sulfate 4 mg 10/29/22 19:43 Morphine Sulfate (*Crx) 4 Mg/Ml Inj IV PUSH Q2H PRN Pain Rated 7-10 Ondansetron HCl 4 mg 10/28/22 04:35 Ondansetron Inj 4 Mg/2 Ml Vial IV PUSH Q4H PRN Nausea Radiology Results: ITS Impressions Abdomen/Pelvis CT 10/28/22 09:24 IMPRESSION: 1. Cholelithiasis. Abdomen Ultrasound 10/28/22 09:28 IMPRESSION: 1: Cholelithiasis with gallbladder wall thickening and mild intrahepatic biliary dilatation. Findings suspicious for cholecystitis. Clinically correlate. Cholangiogram,Operative 10/29/22 18:10 IMPRESSION: Fluoroscopic documentation of intraoperative cholangiography. Please refer to the operative note for complete procedural details . Labs Labs: Laboratory Results - last 24 hr 10/30/22 10/30/22 06:17 06:17 WBC 10.2 H RBC 4.05 L Hgb 12.1 L Hct 35.4 L MCV 87.4 MCH 29.9 MCHC 34.2 RDW 12.1 Plt Count 225 MPV 9.8 Sodium 138 Potassium 3.7 Chloride 105 Carbon Dioxide 28 Anion Gap 5 L BUN 10 Creatinine 0.90 Estim Creat Clear Calc 90 Estimated GFR > 60 Glucose 104 Calcium 8.2 L Total Bilirubin 1.1 AST 30 ALT 29 Alkaline Phosphatase 54 Total Protein 7.0 Albumin 3.8
--- NOTE | 2022-10-30 11:56 | WPDANESPN ---
Anes - Prog Note Post-Op Date/Time: 10/30/22 11:56 Cardiovascular status: normal Respiratory status: normal Airway patency: baseline Mental status: baseline Post-Op hydration status: normal Vital Signs: Last Vital Signs Temp 36.4 C L 10/30/22 08:00 Pulse 83 10/30/22 08:00 Resp 16 10/30/22 08:00 BP 120/82 10/30/22 08:00 Pulse Ox 97 10/30/22 08:00 O2 Del Method Room Air 10/29/22 20:38 O2 Flow Rate 8 10/29/22 18:55 Pain Score (VAS): 3/10, with ambulation I/O: Intake & Output 10/29/22 10/30/22 10/30/22 23:59 07:59 15:59 Intake Total 350 530 Output Total 800 Balance -450 530 Laboratory Tests 10/30/22 06:17 10/30/22 06:17 10/30/22 10/30/22 06:17 06:17 WBC 10.2 H RBC 4.05 L Hgb 12.1 L Hct 35.4 L MCV 87.4 MCH 29.9 MCHC 34.2 RDW 12.1 Plt Count 225 MPV 9.8 Sodium 138 Potassium 3.7 Chloride 105 Carbon Dioxide 28 Anion Gap 5 L BUN 10 Creatinine 0.90 Estim Creat Clear Calc 90 Estimated GFR > 60 Glucose 104 Calcium 8.2 L Total Bilirubin 1.1 AST 30 ALT 29 Alkaline Phosphatase 54 Total Protein 7.0 Albumin 3.8 Post-procedural complaints: none Patient Feedback: Patient satisfied with anesthetic care.
[2022-10-30 12:33] VITALS: BP 100/63; PULSE 62; RESP 18; TEMP 36.4; O2SAT 99
== END 2022-10-30 13:05 | disposition home or self-care (01) ==
LOC: ANHED 04:35 → ANH3MEDSUR 06:29
PROVIDERS: Surgery; Admitting Provider Internal Medicine; Emergency Provider Emergency Medicine; PCP Nurse Practitioner Family; Visit Provider Internal Medicine
PROC: 0FT44ZZ Resection of Gallbladder, Percutaneous Endoscopic Approach (ICD-10-PCS; CPT 47562; principal; 2022-10-29 15:30)
DX: K80.00 Calculus of gallbladder with acute cholecystitis without obstruction (principal); K83.8 Other specified diseases of biliary tract; J30.89 Other allergic rhinitis; I45.10 Unspecified right bundle-branch block; E66.3 Overweight; Z68.27 Body mass index [BMI] 27.0-27.9, adult; Z87.01 Personal history of pneumonia (recurrent); Z20.822 Contact with and (suspected) exposure to COVID-19; Z79.1 Long term (current) use of non-steroidal anti-inflammatories (NSAID); Z79.51 Long term (current) use of inhaled steroids; Z79.899 Other long term (current) drug therapy
CPT/HCPCS: 47563; 36415; 74177; 74300; 76705; 80053; 81003; 83690; 85025; 85027; 87636; 88304; 93005; 96361; 96365; 96366; 96375; 96376; 99285; A9270; C9113; G0378; J1100; J2270; J2405; J2543; J2704; J3010; J7030; J7120; Q9966; Q9967

== ENCOUNTER 2023-11-12 07:53 | Outpatient (CLI) | payer BC, SELFPAY ==
[2023-11-12 08:14] LABS: Basophils Absolute Auto 0.1 K/mm3 (0.0-0.1); Basophils Percent Auto 0.8 % (0.2-1.2); Eosinophils Absolute Auto 0.1 K/mm3 (0-0.3); Eosinophils Percent Auto 1.5 % (0-4.4); Hematocrit 44.4 % (42.0-52.0); Hemoglobin 15.1 g/dL (14.0-18.0); Immature Granulocyte Absolute 0.01 K/mm3 (0.00-0.031); Immature Granulocyte Percent A 0.2 % (0-0.5); Lymphocytes Percent Auto 22.8 % (18.3-44.2); Mean Corpuscular Hemoglobin 29.7 pg (26-34); Mean Corpuscular Volume 87.2 fl (80-100); Mean Platelet Volume 9.9 fl (7.4-10.4); Monocytes Absolute Auto 0.5 K/mm3 (0.1-0.6); Monocytes Percent Auto 7.7 % (2.6-8.5); Neutrophils Absolute Auto 4.4 K/mm3 (1.3-6.7); Platelet Count Result 235 k/mm3 (150-375); Red Blood Count 5.09 M/mm3 (4.6-6.20); Red Cell Distribution Width 12.3 % (11.5-14.5); White Blood Count 6.6 K/mm3 (4.5-10.0)
[2023-11-12 08:24] LABS: Alanine Aminotransferase 30 U/L (6-50); Albumin Level 4.4 g/dL (3.5-5.1); Alkaline Phosphatase 62 U/L (38-126); Anion Gap 7 mmol/L (8-16); Aspartate Amino Transferase 33 U/L (17-59); Bilirubin,Total 0.8 mg/dL (0.2-1.3); Blood Urea Nitrogen 14 mg/dL (9-20); Calcium 9.5 mg/dL (8.4-10.2); Carbon Dioxide 28 mmol/L (22-30); Chloride 106 mmol/L (98-107); Cholesterol 264 mg/dL (0-200); Estimated Glomerular Filt Rate > 60; Glucose 98 mg/dL (65-110); HDL Direct 34 mg/dL; Potassium 4.7 mmol/L (3.4-5.0); Sodium 141 mmol/L (137-145); Triglycerides 242 mg/dL (<150)
[2023-11-12 08:35] LABS: LDL Cholesterol Direct 152 mg/dL
[2023-11-12 08:55] LABS: Prostate Specific Antigen 0.8 ng/mL (< OR = 4.0)
[2023-11-12 09:31] LABS: Appearance Urine Clear (Clear); Bilirubin Urine Negative (Negative); Blood Urine Negative (Negative); Color Urine Yellow (Yellow); Glucose Urine UA Negative (Negative); Ketones Urine Negative (Negative); Leukocyte Esterase Ur Negative LEU/UL (NEGATIVE); Nitrate Urine Negative (Negative); Protein Urine Negative (Negative); Urobilinogen Urine 0.2 mg/dL (<2.0)
[2023-11-12 09:32] LABS: Add Urine Microscopic? NO
== END 2023-11-12 07:54 | disposition home or self-care (01) ==
PROVIDERS: PCP Nurse Practitioner Family; Visit Provider Nurse Practitioner Family
DX: Z00.00 Encounter for general adult medical examination without abnormal findings (principal); E78.5 Hyperlipidemia, unspecified; Z13.0 Encounter for screening for diseases of the blood and blood-forming organs and certain disorders involving the immune mechanism; Z13.29 Encounter for screening for other suspected endocrine disorder; Z12.5 Encounter for screening for malignant neoplasm of prostate
CPT/HCPCS: 36415; 80053; 80061; 81003; 84153; 84443; 85025; G0103

== ENCOUNTER 2024-09-01 12:14 | Emergency (ER) | payer OTHER, SELFPAY ==
--- NOTE | ~2024-09-01 | XR_ITS ---
Right Hand Technique: PA, oblique, and lateral views were obtained. Clinical History: Pain and swelling Findings: There is acute transverse fracture of the fifth metacarpal shaft, with volar angulation.. J oint spaces are preserved. Soft tissues are unremarkable. Impression: Acute fracture the fifth metacarpal shaft with volar angulation. Reviewed, dictated and finalized at location . Impression: Acute fracture the fifth metacarpal shaft with volar angulation.
[2024-09-01 12:23] VITALS: BP 127/82; PULSE 77; RESP 16; TEMP 36.6; O2SAT 99
--- NOTE | 2024-09-01 12:34 | ED.UPPEXIN ---
HPI - Extremity Injury (Upper) General Chief Complaint: Extremity Injury, Upper Stated Complaint: Rt Hand pain Time Seen by Provider: 09/01/24 12:35 Source: patient, RN notes reviewed and old records reviewed Mode of arrival: ambulatory Limitations: no limitations History of Present Illness HPI narrative: 54-year-old male presents to the [facility] with right 5th metatarsal pain, swelling after tripping and falling last night. Patient also reports that he hit his head but denies any loss of consciousness. Denies headache. Denies any blurry vision or change in vision. Denies any numbness or tingling. Walks with a normal gait. Related Data Home Medications Medication Instructions Recorded Confirmed cetirizine 10 mg capsule (Zyrtec) 10 mg PO DAILY PRN Allergy Symptoms 08/10/21 09/01/24 Allergies Allergy/AdvReac Type Severity Reaction Status Date / Time No Known Allergies Allergy Verified 09/01/24 13:03 Review of Systems Review of Systems: All systems reviewed & are unremarkable except as noted in HPI and below Constitutional: Constitutional: Reports no additional constitutional complaints Eyes: Eyes: Reports no additional eye complaints ENT: Reports system reviewed and no additional complaints, except as documented Cardiovascular: Cardiovascular: Reports no additional cardiovascular complaints, Denies chest pain and Denies dyspnea Respiratory: Respiratory: Reports no additional respiratory complaints, Denies chest congestion, Denies cough and Denies dyspnea Gastrointestinal: Gastrointestinal: Reports no additional gastrointestinal complaints, Denies abdominal pain, Denies nausea and Denies vomiting Musculoskeletal: Musculoskeletal: Reports as per HPI, Denies numbness and Denies tingling Integumentary/Breasts: Skin/Breast: Reports system reviewed and no additional complaints, except as docu Neurologic: Reports system reviewed and no additional complaints, except as documented Psychiatric: Psychiatric: Reports no additional psychiatric complaints Allergic/Immunologic: Allergic/Immunologic: Reports no additional allergic/immunologic complaints [facility] Past Medical History Medical History Abdominal pain, acute, epigastric Acute calculous cholecystitis BMI 26.0-26.9,adult Chronic allergic rhinitis Dilation of biliary tract Encounter for surgical aftercare following surgery on the digestive system Encounter to establish care Frequent episodes of pneumonia Hearing loss Hx of cardiac murmur Hyperlipidemia Left hip pain Screening for colon cancer Screening for prostate cancer Seasonal allergies Surgical History Surgical History Hx laparoscopic cholecystectomy laparoscopic cholecystectomy w/IOC 10/28/22 No history of previous surgery Family History Family History Father Malignant neoplasm of prostate Mother Breast cancer Cerebrovascular accident Thyroid disease High cholesterol Sibling Thyroid disease High cholesterol Social History Social History Smoking status: Never smoker Alcohol intake: current Drinks per week: 1 Substance use: never Substance use type: does not use Lack of Transportation: No Lack of Food: Never True Current Housing: I Have Housing Concerned About Future Housing: No Difficulty Paying Gas/Electric Bills: No Difficulty Paying for Meds: No Currently Unemployed: No Education: Bachelor's Degree Difficulty w/ Childcare or Family Care: No Spiritual care concerns: No Comments At the time of my signature, I reviewed and agree with the nursing past medical, surgical, social, and family history. There is no relevant family history pertinent to the patient complaint. Exam Const: General: cooperative, healthy appearing, comfort
== END 2024-09-01 13:47 | disposition home or self-care (01) ==
PROVIDERS: Emergency Provider Nurse Practitioner; PCP Nurse Practitioner Family
DX: S62.326A Displaced fracture of shaft of fifth metacarpal bone, right hand, initial encounter for closed fracture (principal); W01.0XXA Fall on same level from slipping, tripping and stumbling without subsequent striking against object, initial encounter; R01.1 Cardiac murmur, unspecified; E78.5 Hyperlipidemia, unspecified
CPT/HCPCS: 29125; 73130; 99214; A4565; G0463

== ENCOUNTER 2024-09-09 09:27 | Day surgery (SDC) | payer OTHER, SELFPAY ==
[2024-09-07 14:57] VITALS: BMI 25.8
--- NOTE | 2024-09-07 14:59 | PC.NURSE ---
Report to the Outpatient Waiting Room, entrance under the green pavilion located off [facility], at time _0900_ on date _[id number]_. Planned Procedure Time: _1100_.? Time changes happen often and if your time is changed the preop area will call you the afternoon before. - You and your visitor will be asked to self-screen and do not enter if you have any COVID symptoms. Please call surgeon if you need to reschedule. - A mask is optional within the hospital at this time. Patients may have clear liquids (water, carbonated beverages, clear teas, apple juice) until 3 hours prior to surgery with a maximum of 20 ounces. - No food from midnight until time of surgery and no smoking Take only the following medications with a SIP of water on the morning of surgery: __Pain med if needed. DO NOT STOP ANY OF YOUR OTHER PRESCRIPTION MEDICATIONS PRIOR TO SURGERY EXCEPT THE FOLLOWING Medications to discontinue per physician __None Please no make-up, nail trinidadian, hairspray, perfume, deodorant, or body powder the day of surgery.? No jewelry (including any body piercings) or valuables the day of surgery, leave them at home.? Please take a shower or bath the night before, or the morning of, surgery with an antibacterial soap.? Wear comfortable, loose fitting clothing.? - Jewelry must be removed prior to entering the operating room.? Rings and piercings that are not removed may be cut off. - The hospital will not accept responsibility for valuables.? - Please leave all valuables, including medications, at home the day of surgery. If you are going home after surgery, a licensed sales driver must drive you home.? - NO public transportation without another adult if you receive anesthesia. - We recommend that an adult stay with you for 24 hours following discharge. - We also recommend that you do not drive, make important decision, drink alcoholic beverages, or take any drugs that were not prescribed by your health care provider for at least 24 hours after your discharge time. Follow any additional instructions given to you from your surgeon. Telephone instructions given to __David__and asked if any additional questions and then verbalized understanding. Patient advised to call surgeon office or pre surgery nurse liaison [phone] if any additional questions.
--- NOTE | 2024-09-07 15:06 | PC.NURSE ---
Report to the Outpatient Waiting Room, entrance under the green pavilion located off [facility], at time _0900_ on date _[id number]_. Planned Procedure Time: _1100_.? Time changes happen often and if your time is changed the preop area will call you the afternoon before. - You and your visitor will be asked to self-screen and do not enter if you have any COVID symptoms. Please call surgeon if you need to reschedule. - A mask is optional within the hospital at this time. May have clear liquids (water, carbonated beverages, clear teas, apple juice) until 3am with a maximum of 20 ounces, then nothing to drink until after surgery. - No food from midnight until time of surgery and no smoking Take only the following medications with a SIP of water on the morning of surgery: __Pain med if needed. DO NOT STOP ANY OF YOUR OTHER PRESCRIPTION MEDICATIONS PRIOR TO SURGERY EXCEPT THE FOLLOWING Medications to discontinue per physician ___None Please no make-up, nail frisian, hairspray, perfume, deodorant, or body powder the day of surgery.? No jewelry (including any body piercings) or valuables the day of surgery, leave them at home.? Please take a shower or bath the night before, or the morning of, surgery with an antibacterial soap.? Wear comfortable, loose fitting clothing.? - Jewelry must be removed prior to entering the operating room.? Rings and piercings that are not removed may be cut off. - The hospital will not accept responsibility for valuables.? - Please leave all valuables, including medications, at home the day of surgery. If you are going home after surgery, a licensed road driver must drive you home.? - NO public transportation without another adult if you receive anesthesia. - We recommend that an adult stay with you for 24 hours following discharge. - We also recommend that you do not drive, make important decision, drink alcoholic beverages, or take any drugs that were not prescribed by your health care provider for at least 24 hours after your discharge time. Follow any additional instructions given to you from your surgeon. Telephone instructions given to __David_and asked if any additional questions and then verbalized understanding. Patient advised to call surgeon office or pre surgery nurse liaison [phone] if any additional questions.
--- NOTE | ~2024-09-09 | XR_ITS ---
EXAMINATION: XR surgery orthopedic DATE: 09/09/2024 11:56 INDICATION: Right fifth metacarpal fixation TECHNIQUE: 3 fluoroscopic images of the right hand were obtained during procedure performed by Dr. Ab espinal. Radiologist was not present for the imaging or procedure. The amount of fluoroscopy time us ed during this procedure was 1.1 minutes. COMPARISON: 09/01/2024 FINDINGS: Interval open reduction and axially directed screw fixation across an oblique fracture of the distal diaphysis of the right fifth metacarpal. Alignment is near-anatomic with one cortical width residual radial displacement. No other fractures identified. Joint spaces appear relatively preserved. IMPRESSION: 1. Near-anatomic alignment post reduction internal fixation of a diaphyseal fracture of the right fif th metacarpal. See procedure note for further detail. Reviewed, dictated and finalized at location A.
--- NOTE | ~2024-09-09 | XR_ITS ---
CORRECTED REPORT This report was moved to [id number] [facility] 09/10/2024 This report was recreated on 09/10/2024. Original report was EXAMINATION: XR surgery orthopedic DATE: 09/09/2024 11:56 INDICATION: Right fifth metacarpal fixation TECHNIQUE: 3 fluoroscopic images of the right hand were obtained during procedure performed by Dr. Arguelles. Radiologist was not present for the imaging or procedure. The amount of fluoroscopy time used during this procedure was 1.1 minutes. COMPARISON: 09/01/2024 FINDINGS: Interval open reduction and axially directed screw fixation across an oblique fracture of the distal diaphysis of the right fifth metacarpal. Alignment is near-anatomic with one cortical width residual radial displacement. No other fractures identified. Joint spaces appear relatively preserved. IMPRESSION: 1. Near-anatomic alignment post reduction internal fixation of a diaphyseal fracture of the right fifth metacarpal. See procedure note for further detail. Reviewed, dictated and finalized at location A. MTDD IMPRESSION: 1. Near-anatomic alignment post reduction internal fixation of a diaphyseal fra cture of the right fifth metacarpal. See procedure note for further detail.
--- NOTE | 2024-09-09 07:05 | HP_ITS ---
This report was moved to the correct visit on 09/10/2024. The original report was signed by Robert Arguelles MD on 09/09/24 1022. History and Physical Update Update Date/Time: 09/09/24 07:05 Patient seen and examined in pre-operative holding area. No interval change in medical history or symptoms. Patient recalls previous discussion of benefits and alternatives to procedure. Continues to desire to proceed with right fifth metacarpal fracture closed possible open reduction and pinning possible intramedullary screw/nail. Reviewed procedure, post-op expectations and risks including but not limited to bleeding, infection, injury to tendon/nerve/vessel, decreased hand function, stiffness, RSD, no change or worsening of symptoms, malunion, nonunion, hardware complications. I discussed the possible use of assistants and their participation in the case. Patient stated understanding and signed the consent form wishing to proceed. This report may have been done utilizing a voice recognition system. Attempts have been made to correct errors. However, there may be uncorrected grammatical, spelling, and recognition errors present. Report Initialized date/time: Robert Arguelles MD 09/09/24 0705 Electronically signed by: Robert Arguelles MD 09/09/24 1024 [facility]
[2024-09-09 09:29] VITALS: BP 144/92; PULSE 74; RESP 16; TEMP 36.4; O2SAT 100
--- NOTE | 2024-09-09 10:16 | ED.UPPEXIN ---
HPI - Extremity Injury (Upper) General Chief Complaint: Extremity Injury, Upper <JEROMY Lee Last Filed: 09/09/24 10:23> Stated Complaint: R hand fracture <JEROMY Lee Last Filed: 09/09/24 10:23> Time Seen by Provider: 09/09/24 09:33 <JEROMY Lee Last Filed: 09/09/24 10:23> Source: patient <JEROMY Lee Last Filed: 09/09/24 10:23> Mode of arrival: ambulatory <JEROMY Lee Last Filed: 09/09/24 10:23> Limitations: no limitations <JEROMY Lee Last Filed: 09/09/24 10:23> History of Present Illness HPI narrative: Patient is a 54-year-old male who presents the ED with report of right 5th metacarpal fracture. Patient is scheduled to undergo surgery with Dr. Arguelles today to repair fx with screw. He initially injured his hand on 08/31 after a ground level fall. Was splinted and f/u with Dr. Arguelles this week. Denies any significant pain. Denies numbness. <JEROMY Lee Last Filed: 09/09/24 10:23> Related Data Home Medications: Home Medications Medication Instructions Recorded Confirmed cetirizine 10 mg capsule (Zyrtec) 10 mg PO DAILY PRN Allergy Symptoms 08/10/21 09/07/24 <JEROMY Lee Last Filed: 09/09/24 10:23> Allergies/Adverse Reactions: Allergies Allergy/AdvReac Type Severity Reaction Status Date / Time No Known Allergies Allergy Verified 09/09/24 11:01 <JEROMY Lee Last Filed: 09/09/24 10:23> Review of Systems Review of Systems: All systems reviewed & are unremarkable except as noted in HPI. <JEROMY Lee Last Filed: 09/09/24 10:23> All systems reviewed & are unremarkable except as noted in HPI and below <Debo Jordan PA-C - Last Filed: 09/09/24 10:23> PMFSH Past Medical History Medical History: Medical History Abdominal pain, acute, epigastric Acute calculous cholecystitis BMI 26.0-26.9,adult Chronic allergic rhinitis Dilation of biliary tract Encounter for surgical aftercare following surgery on the digestive system Encounter to establish care Frequent episodes of pneumonia Hearing loss Hx of cardiac murmur Hyperlipidemia Left hip pain Screening for colon cancer Screening for prostate cancer Seasonal allergies <Debo Jordan PA-C - Last Filed: 09/09/24 10:23> Surgical History Surgical History: Surgical History (Updated 09/09/24 @ 10:48 by Linden Cho MD) Hx laparoscopic cholecystectomy laparoscopic cholecystectomy w/IOC 10/28/22 <Debo Jordan PA-C - Last Filed: 09/09/24 10:23> Family History Family History: Family History Father Malignant neoplasm of prostate Mother Breast cancer Cerebrovascular accident Thyroid disease High cholesterol Sibling Thyroid disease High cholesterol <Debo Jordan PA-C - Last Filed: 09/09/24 10:23> Social History Social History: Social History Smoking status: Never smoker Alcohol intake: never Drinks per week: 1 Substance use: never Substance use type: does not use Lack of Transportation: No Lack of Food: Never True Current Housing: I Have Housing Concerned About Future Housing: No Difficulty Paying Gas/Electric Bills: No Difficulty Paying for Meds: No Currently Unemployed: No Education: Bachelor's Degree Difficulty w/ Childcare or Family Care: No Living arrangements: with family Spiritual care concerns: No <Debo Jordan PA-C - Last Filed: 09/09/24 10:23> Exam Narrative: GENERAL: Well appearing, well-nourished, non-toxic, in no acute distress. HEAD: Normocephalic, atraumatic. RESPIRATORY: Airway patent, respirations nonlabored. CARDIOVASCULAR:
[2024-09-09 10:35] VITALS: BP 138/95; PULSE 68; RESP 16; TEMP 36.4; O2SAT 100
--- NOTE | 2024-09-09 10:40 | PC.NURSE ---
No nursing interventions required in ED. Right hand splinted, plan for surgical intervention today. VS as documented. Pt taken to pre-op.
--- NOTE | 2024-09-09 10:47 | WPDANESEPPF ---
Anes - Initial Pre Proc Eval Procedure: Operation Date: 09/09/24 11:00 Proposed Procedures p Right Fifth Metacarpal Closed Reduction, Possible Open Reduction and Pinning and Intramedullary Screw Fixation - Robert Arguelles MD Date/Time: 09/09/24 10:47 Surgeon: Robert Arguelles MD Pre Op Diagnosis: R hand fracture Patient Data Age: 54 Gender: M Height: 1.8 m Weight: 85 kg Last Vital Signs Temp 36.4 C 09/09/24 10:35 Pulse 68 09/09/24 10:35 Resp 16 09/09/24 10:35 BP 138/95 H 09/09/24 10:35 Pulse Ox 100 09/09/24 10:35 Allergies Allergy/AdvReac Type Severity Reaction Status Date / Time No Known Allergies Allergy Verified 09/09/24 09:31 Home Medications Medication Instructions Recorded Confirmed Type cetirizine 10 mg capsule (Zyrtec) 10 mg PO DAILY PRN Allergy Symptoms 08/10/21 09/07/24 History ezetimibe 10 mg tablet (Zetia) 10 mg PO DAILY #30 tabs 04/01/24 09/07/24 Rx hydrocodone 5 mg-acetaminophen 325 1 tablet PO Q6H PRN pain #10 tabs 09/01/24 09/07/24 Rx mg tablet Patient hx anesthesia problems: none Family hx anesthesia problems: none Results Review: All pre-operative results and documents have been reviewed as part of the pre-operative evaluation. [facility] Past Medical History Medical History Abdominal pain, acute, epigastric Acute calculous cholecystitis BMI 26.0-26.9,adult Chronic allergic rhinitis Dilation of biliary tract Encounter for surgical aftercare following surgery on the digestive system Encounter to establish care Frequent episodes of pneumonia Hearing loss Hx of cardiac murmur Hyperlipidemia Left hip pain Screening for colon cancer Screening for prostate cancer Seasonal allergies Surgical History Surgical History (Updated 09/09/24 @ 10:48 by Linden Cho MD) Hx laparoscopic cholecystectomy laparoscopic cholecystectomy w/IOC 10/28/22 Family History Family History Father Malignant neoplasm of prostate Mother Breast cancer Cerebrovascular accident Thyroid disease High cholesterol Sibling Thyroid disease High cholesterol Social History Social History Smoking status: Never smoker Alcohol intake: never Drinks per week: 1 Substance use: never Substance use type: does not use Lack of Transportation: No Lack of Food: Never True Current Housing: I Have Housing Concerned About Future Housing: No Difficulty Paying Gas/Electric Bills: No Difficulty Paying for Meds: No Currently Unemployed: No Education: Bachelor's Degree Difficulty w/ Childcare or Family Care: No Living arrangements: with family Spiritual care concerns: No Anes - Eval Final PreProcedure Day of Procedure 09/09/24 10:47 Patient weight: normal Heart: regular rate and rhythm Lungs: clear to auscultation Airway: Mallampati scale class II Neurological: alert and oriented Last oral intake: >/= 8 hours ASA classification: II Emergent: no Anesthetic plan: proceed Anesthesia type and monitoring: general LMA and standard monitoring Results Review: All pre-operative results and documents have been reviewed as part of the pre-operative evaluation. Informed Consent: The patient's anesthetic plan and its attendant risks and benefits were discussed with the patient/family/POA. Questions were solicited and answers provided to the satisfaction of the patient/family/POA.
[2024-09-09 11:00] VITALS: BP 148/74; PULSE 74; RESP 18; TEMP 36.3; O2SAT 100
[2024-09-09] MEDS: LACTATED RINGERS 1,000 ML 30 ML IV CONT (11:00)
[2024-09-09] MEDS: LIDOCAINE HCL 1% LOCAL INJ 20 ML VIAL 10 ML INFILTRATE (11:05)
[2024-09-09] MEDS: ceFAZolin 2 GM/D5W 50 ML 2 GM/50 ML BAG IVPB (11:12)
[2024-09-09 11:55] VITALS: BP 107/69; PULSE 77; RESP 14; O2SAT 100
--- NOTE | 2024-09-09 11:55 | P.OP_ITS ---
Procedure Note - Detailed Date of Procedure 09/09/24 Pre-op Diagnosis right 5th metacarpal fracture Post-op Diagnosis Same Procedure Performed orif right 5th Surgeon Robert Arguelles MD [employer] Custodian yudi delgado pa-c Anesthesia MAC Description of Procedure INFORMED CONSENT: The patient was seen and examined and marked in the pre-op area.? The patient signed the consent form. PROCEDURE IN DETAIL:The patient taken back to OR on the stretcher in supine position. Time out performed with anesthesia, surgeon and staff agreeing on patient's name site and surgery to be performed SCDs were placed on the lower extremities and inflated. A tourniquet was placed on {right} upper extremity and antibiotics given IV After anesthesia administered sedation I injected {11}cc 1%lido and 0.5% marcaine plain for local block The?{right upper extremity}?was prepped and draped in sterile fashion the??{right upper extremity} was? exsanguinated with Esmarch bandage and tourniquet inflated to 250mmHg Mini c-arm was draped and brought into the field. The fracture was evaluated under fluoro and able to be reduced though unstable so the decision was made to proceed with ORIF with intramedullary screw. I made a longitudinal incision through skin and dermis with 15 blade over the 5th mpjoint. Littler scissors were used to spread down to the extensor tendon. I next proceeded with placeing a 0.045 k-wire in retrograde fashion through the articular surface and splitting the extensor tendon. Placement was verified on multiple views of fluoroscopy noting maintenance of reduction, shinto of knuckle height and no scissoring on full digit range of motion. The length of the metacarpal was measured and the k-wire advanced into the hamate. I used a 15 blade to split the extensor further and protect it while I proceeded with drilling over the k-wire under live fluoro and proceeded with placing an Arthrex 3.5mm diameter 44mm long beveled metacarapl intramedullary screw until clearly buried under articular surface visibly and on fluoro. Multiple views of fluoro confirmed screw p lacement, maintenance of reduction. I irrigated with normal saline and closed skin with 4-0 chromic. Again, the knuckleheaight was maintained and no scissoring or extensor lag noted on exam and tenodesis. A dressing of xeroform, 4x4, waldo, and an ulnar gutter splint was applied for patient safety, security, and comfort and secured with an cisco bandage after the tourniquet was let down noting the hand was warm and well perfused. The patient was then awaken from anesthesia and transferred to the recovery room in stable condition.? Complications - none EBL- 0cc Disposition - home in stable conditions yudi Delgado pa-c was essential for positioning, fluoro, maintainig reduction, instrumentation, closure and dressing placement [facility] Billing Surgery - Charge Forward: Surgery Billing ([id number] for yudi)
[2024-09-09 12:25] VITALS: BP 121/81; PULSE 60; RESP 14; O2SAT 100
[2024-09-09 12:55] VITALS: BP 126/69; PULSE 60; RESP 14
== END 2024-09-09 13:35 | disposition home or self-care (01) ==
LOC: ANHED 10:23 → ANHSURGERY 10:29 → ANHED 10:33 → ANHSURGERY 10:44
PROVIDERS: Emergency Provider Physician Assistant; PCP Nurse Practitioner Family; Visit Provider Plastic Surgery
PROC: (CPT 26615; principal; 2024-09-09 11:00)
DX: S62.306A Unspecified fracture of fifth metacarpal bone, right hand, initial encounter for closed fracture (principal); E78.5 Hyperlipidemia, unspecified; J30.89 Other allergic rhinitis; R01.1 Cardiac murmur, unspecified; Z79.891 Long term (current) use of opiate analgesic; Z98.890 Other specified postprocedural states; Z90.49 Acquired absence of other specified parts of digestive tract; Z80.42 Family history of malignant neoplasm of prostate; Z80.3 Family history of malignant neoplasm of breast; Z82.49 Family history of ischemic heart disease and other diseases of the circulatory system; W18.30XA Fall on same level, unspecified, initial encounter
CPT/HCPCS: 26615; 99199; A9270; J0690; J2003; J2250; J2405; J2704; J3010; J7120

== ENCOUNTER 2024-09-29 08:09 | Day surgery (SDC) | payer OTHER, SELFPAY ==
[2024-08-23 07:47] VITALS: BMI 26.1
[2024-09-07 10:56] VITALS: BMI 25.8
--- NOTE | 2024-09-28 14:05 | WPDANESEPPF ---
Anes - Initial Pre Proc Eval Procedure: Operation Date: 09/29/24 10:30 Proposed Procedures p Screening Colonoscopy - Vinnie Rangel MD Date/Time: 09/28/24 14:05 Surgeon: Vinnie Rangel MD Pre Op Diagnosis: Neoplasm Screening Patient Data Age: 54 Gender: M Height: 1.8 m Weight: 84 kg Allergies Allergy/AdvReac Type Severity Reaction Status Date / Time No Known Allergies Allergy Verified 09/29/24 09:20 Home Medications Medication Instructions Recorded Confirmed Type cetirizine 10 mg capsule (Zyrtec) 10 mg PO DAILY PRN Allergy Symptoms 08/10/21 09/29/24 History ezetimibe 10 mg tablet (Zetia) 10 mg PO DAILY #30 tabs 04/01/24 09/29/24 Rx Patient hx anesthesia problems: none Family hx anesthesia problems: none Results Review: All pre-operative results and documents have been reviewed as part of the pre-operative evaluation. [facility] Past Medical History Medical History Abdominal pain, acute, epigastric Acute calculous cholecystitis BMI 26.0-26.9,adult Chronic allergic rhinitis Dilation of biliary tract Encounter for surgical aftercare following surgery on the digestive system Encounter to establish care Frequent episodes of pneumonia Hearing loss Hx of cardiac murmur Hyperlipidemia Left hip pain Screening for colon cancer Screening for prostate cancer Seasonal allergies Surgical History Surgical History Hx laparoscopic cholecystectomy laparoscopic cholecystectomy w/IOC 10/28/22 Family History Family History Father Malignant neoplasm of prostate Mother Breast cancer Cerebrovascular accident Thyroid disease High cholesterol Sibling Thyroid disease High cholesterol Social History Social History (Updated 09/27/24 @ 07:49 by Chantale Flores) Social History: Caffeine- coffee Smoking status: Never smoker Alcohol intake: current Drinks per week: 1 Alcohol use details: rarely Substance use: never Substance use type: does not use Do You Feel Safe in your Home?: Yes Lack of Transportation: No Lack of Food: Never True Current Housing: I Have Housing Concerned About Future Housing: No Difficulty Paying Gas/Electric Bills: No Difficulty Paying for Meds: No Currently Unemployed: No Education: Bachelor's Degree Difficulty w/ Childcare or Family Care: No Living arrangements: with family Spiritual care concerns: No Anes - Eval Final PreProcedure Day of Procedure 09/28/24 14:05 Patient weight: overweight Heart: regular rate and rhythm Lungs: clear to auscultation Airway: Mallampati scale class II Neurological: alert and oriented Last oral intake: >/= 8 hours ASA classification: II Emergent: no Anesthetic plan: proceed Anesthesia type and monitoring: general GIVS and standard monitoring Results Review: All pre-operative results and documents have been reviewed as part of the pre-operative evaluation. Informed Consent: The patient's anesthetic plan and its attendant risks and benefits were discussed with the patient/family/POA. Questions were solicited and answers provided to the satisfaction of the patient/family/POA.
[2024-09-29 09:21] VITALS: BP 110/74; PULSE 62; RESP 18; TEMP 36.9; O2SAT 98
[2024-09-29] MEDS: LACTATED RINGERS 1,000 ML 150 ML IV CONT (09:25)
--- NOTE | 2024-09-29 10:03 | PM.HPGS ---
History of Present Illness History of Present Illness Consent: Risks, benefits, and alternatives have been discussed and questions answered. Patient agrees to proceed with procedure. Chief complaint: Neoplasm Screening Narrative: Barney Brown is a 54 year old male presents for screening colonoscopy. Patient's current weight appetite and bowel movements are normal. He denies has had no bleeding. Family history is noncontributory. Review of Systems Review of Systems: All systems reviewed & are unremarkable except as noted in HPI and below PMFSH Past Medical History Medical History Abdominal pain, acute, epigastric Acute calculous cholecystitis BMI 26.0-26.9,adult Chronic allergic rhinitis Dilation of biliary tract Encounter for surgical aftercare following surgery on the digestive system Encounter to establish care Frequent episodes of pneumonia Hearing loss Hx of cardiac murmur Hyperlipidemia Left hip pain Screening for colon cancer Screening for prostate cancer Seasonal allergies Surgical History Surgical History Hx laparoscopic cholecystectomy laparoscopic cholecystectomy w/IOC 10/28/22 Family History Family History Father Malignant neoplasm of prostate Mother Breast cancer Cerebrovascular accident Thyroid disease High cholesterol Sibling Thyroid disease High cholesterol Social History Social History (Updated 09/27/24 @ 07:49 by Chantale Flores) Social History: Caffeine- coffee Smoking status: Never smoker Alcohol intake: current Drinks per week: 1 Alcohol use details: rarely Substance use: never Substance use type: does not use Do You Feel Safe in your Home?: Yes Lack of Transportation: No Lack of Food: Never True Current Housing: I Have Housing Concerned About Future Housing: No Difficulty Paying Gas/Electric Bills: No Difficulty Paying for Meds: No Currently Unemployed: No Education: Bachelor's Degree Difficulty w/ Childcare or Family Care: No Living arrangements: with family Spiritual care concerns: No Meds Home Medications and Allergies Home Medications Medication Instructions Recorded Confirmed Type cetirizine 10 mg capsule (Zyrtec) 10 mg PO DAILY PRN Allergy Symptoms 08/10/21 09/29/24 History ezetimibe 10 mg tablet (Zetia) 10 mg PO DAILY #30 tabs 04/01/24 09/29/24 Rx Allergies Allergy/AdvReac Type Severity Reaction Status Date / Time No Known Allergies Allergy Verified 09/29/24 09:20 Vital Signs Vital Signs - 24 hr 09/29/24 09:21 Temperature 98.5 F Pulse Rate 62 Respiratory Rate 18 Blood Pressure 110/74 Pulse Oximetry 98 Oxygen Delivery Room Air Exam Narrative: Physical exam reveals patient to be alert. Vital signs stable. HEENT exam is unremarkable. Patient is anicteric. Lungs are clear to auscultation and to percussion. Heart is without murmur or extra sounds. Abdomen bowel sounds are present soft nontender with no organomegaly. Digital and external rectal exam is normal. Assessment and Plan Assessment and plan (1) Screening for colon cancer: Code(s): Z12.11 - Encounter for screening for malignant neoplasm of colon Status: Acute Assessment and Plan: Patient presents today for screening colonoscopy. Further recommendations may be given after endoscopy. Fiber supplementation may be beneficial with patient's irregular bowel movements and abdominal discomfort.
[2024-09-29 11:27] VITALS: BP 87/64; PULSE 75; RESP 20; O2SAT 99
[2024-09-29 11:37] VITALS: BP 111/75; PULSE 72; RESP 18; O2SAT 98
[2024-09-29 11:47] VITALS: BP 114/79; PULSE 66; RESP 18; O2SAT 100
--- NOTE | 2024-09-29 12:27 | WPDANESPN ---
Anes - Prog Note Post-Op Date/Time: 09/29/24 12:27 Cardiovascular status: normal Respiratory status: normal Airway patency: baseline Mental status: baseline Post-Op hydration status: normal Vital Signs: Last Vital Signs Temp 36.9 C 09/29/24 09:21 Pulse 66 09/29/24 11:47 Resp 18 09/29/24 11:47 BP 114/79 09/29/24 11:47 Pulse Ox 100 09/29/24 11:47 O2 Del Method Room Air 09/29/24 11:47 Pain Score (VAS): 0 I/O: Intake & Output 09/28/24 09/29/24 09/29/24 23:59 07:59 15:59 Intake Total 400 Balance 400 Post-procedural complaints: none Patient Feedback: Patient satisfied with anesthetic care. Other Findings: Patient vital signs back to baseline. Patient denies nausea and vomiting. Patient's pain under control. Patient OK for discharge.
== END 2024-09-29 12:04 | disposition home or self-care (01) ==
PROVIDERS: PCP Nurse Practitioner Family; Visit Provider Internal Medicine Gastroenterology
PROC: 0DJD8ZZ Inspection of Lower Intestinal Tract, Via Natural or Artificial Opening Endoscopic (ICD-10-PCS; CPT 45378; principal; 2024-09-29 10:30)
DX: Z12.11 Encounter for screening for malignant neoplasm of colon (principal); K64.8 Other hemorrhoids
CPT/HCPCS: 45378

== ENCOUNTER 2024-10-11 08:39 | Outpatient (CLI) | payer OTHER, SELFPAY ==
--- NOTE | ~2024-10-11 | XR_ITS ---
XR hand RT min 3V Ordering provider: Susy Gatica PA-C History: . 4 WEEKS POST OP 5TH METACARPAL, SLIGHT NUMBNESS IN FINGERS . Comparison: None. FINDINGS: BONES: Fracture of the midshaft of the fifth metacarpal bone with status post fixation by screw. JOINT SPACES: Normal. SOFT TISSUES: Normal. IMPRESSION: Fracture fifth metacarpal bone with status post fixation by a screw. Reviewed, dictated and finalized at location A. NG BUILDER
== END 2024-10-11 08:40 | disposition home or self-care (01) ==
PROVIDERS: PCP Nurse Practitioner Family; Visit Provider Physician Assistant Surgical
DX: S62.306A Unspecified fracture of fifth metacarpal bone, right hand, initial encounter for closed fracture (principal); X58.XXXA Exposure to other specified factors, initial encounter
CPT/HCPCS: 73130

== ENCOUNTER 2025-11-10 07:38 | Outpatient (CLI) | payer OTHER, SELFPAY ==
--- OUTSIDE RECORDS SUMMARY | 2025-11-10 07:41 | XMS_ITS | Clinical Summary ---
Author Organization [facility] Address [facility] [place] [address] Care Team Providers Care Hedis Nurse Name Role Phone Unavailable Primary Care Provider Unavailabl e Social History Tobacco Use Types Packs/Day Years Used Date Smoking Tobacco: Never Assessed Sex and Gender Information Value Date Recorded Sex Assigned at Not on file Legal Sex Male 5:36 PM CDT Gender Identity Not on file Sexual Orientation Not on file Plan of Treatment Health Maintenance Due Date Last Done Comments Colorectal Cancer Screening Colonoscopy (10 Years) 1970 Annual Physical 1973 Hepatitis C 1988 DTaP, Tdap and Td Vaccines ( 1 - Tdap) 1989 Hepatitis B Vaccines (1 of 3 - 19+ 3-dose series) 1989 Pneumococcal Vaccine: 50+ Ye ars (1 of 1 - PCV) 2020 Zoster Vaccines (1 of 2) 2020 COVID-19 Vaccine (2024-2 6 season) 2025 Influenza Adult (#1) 2025 Hepatitis A Vaccines Aged Out No long er eligible based on patient's age to complete this topic Meningococcal B Vaccine Aged Out No l onger eligible based on patient's age to complete this topic Meningococcal Vaccine Aged Out No ryne rosanna eligible based on patient's age to complete this topic RSV Immunizations Under 20 Months Aged Out No longer eligible based on patient's age to complete this topic
[2025-11-10 08:13] LABS: Add Urine Microscopic? NO; Appearance Urine Clear (Clear); Glucose Urine UA Negative (Negative); Leukocyte Esterase Ur Negative LEU/UL (Negative); Nitrate Urine Negative (Negative); Specific Grav Ur 1.007 (1.001-1.035)
[2025-11-10 08:14] LABS: Hematocrit 41.8 % (42.0-52.0); Hemoglobin 14.2 g/dL (14.0-18.0); Immature Granulocyte Percent A 0.4 % (0-0.5); Lymphocytes Absolute Auto 1.35 K/mm3 (0.9-3.2); Mean Corpuscular HGB Conc 34.0 g/dl (32-36); Mean Corpuscular Hemoglobin 30.1 pg (26-34); Mean Corpuscular Volume 88.7 fl (80-100); Nucleated Red Blood Cells Absolute Auto 0.000 K/mm3 (0.0-0.012); Nucleated Red Blood Cells Perc 0.0 % (0.0-0.2); Platelet Count Result 254 k/mm3 (150-375); Red Blood Count 4.71 M/mm3 (4.6-6.20); White Blood Count 6.7 K/mm3 (4.5-10.0)
[2025-11-10 08:27] LABS: Hemoglobin A1C 5.4 % (<5.7)
[2025-11-10 08:34] LABS: Alanine Aminotransferase 23 U/L (6-50); Albumin Level 4.4 g/dL (3.5-5.1); Alkaline Phosphatase 63 U/L (38-126); Anion Gap 5 mmol/L (4-12); Aspartate Amino Transferase 35 U/L (17-59); Bilirubin,Total 0.8 mg/dL (0.2-1.3); Blood Urea Nitrogen 12 mg/dL (9-20); Calcium 9.4 mg/dL (8.4-10.2); Carbon Dioxide 28 mmol/L (22-30); Chloride 104 mmol/L (98-107); Cholesterol 229 mg/dL (0-200); Estimated Glomerular Filt Rate > 60; Glucose 84 mg/dL (65-110); HDL Direct 36 mg/dL; Potassium 4.3 mmol/L (3.4-5.0); Sodium 137 mmol/L (137-145); Total Protein 7.7 g/dL (6.3-8.2); Triglycerides 177 mg/dL (<150)
[2025-11-10 09:04] LABS: Thyroid Stimulating Hormone Reflex 1.840 uIU/mL (0.465-4.68)
[2025-11-10 09:10] LABS: Prostate Specific Antigen 0.9 ng/mL (< OR = 4.0)
[2025-11-11 07:09] LABS: C-Reactive Protein, Cardiac 0.75 mg/L (0.00-3.00)
== END 2025-11-10 07:39 | disposition home or self-care (01) ==
LOC: ANHLAB 07:39
PROVIDERS: PCP Nurse Practitioner Family; Visit Provider Nurse Practitioner Family
DX: E78.5 Hyperlipidemia, unspecified (principal); Z13.0 Encounter for screening for diseases of the blood and blood-forming organs and certain disorders involving the immune mechanism; Z13.29 Encounter for screening for other suspected endocrine disorder; Z13.1 Encounter for screening for diabetes mellitus; Z13.6 Encounter for screening for cardiovascular disorders; Z68.26 Body mass index [BMI] 26.0-26.9, adult; Z00.00 Encounter for general adult medical examination without abnormal findings
CPT/HCPCS: 36415; 80053; 80061; 81003; 82172; 83036; 83695; 84153; 84443; 85025; 86141; G0103